=== PATIENT | male | born 1940 | race African-American/Black ===

== ENCOUNTER 2022-02-10 13:54 | Inpatient (IN) | payer MEDICARE, MEDICAID ==
[~2022-02-10] VITALS: Ht 182.9 cm; Wt 64.9 kg
[2022-02-10 17:35] LABS: BASOPHILS % 0.6 % (0.0-2.0); EOSINOPHILS % 2.1 % (0.0-5.0); HEMOGLOBIN. 13.6 g/dL (14.0-18.0); LYMPHOCYTES % 11.7 % (20.0-50.0); MEAN CORPUSCULAR HEMOGLOBIN 29.5 pg (28.0-32.0); MEAN CORPUSCULAR VOLUME 90.9 fL (80.0-94.0); MEAN PLATELET VOLUME 9.6 fl (7.4-10.4); MONOCYTES % 8.1 % (2.0-8.0); NEUTROPHILS % 77.5 % (40.0-76.0); PLATELET 193 x1000/uL (130-400); RED BLOOD CELL COUNT 4.62 mill/uL (4.7-6.1); RED CELL DISTRIBUTION WIDTH 15.8 % (11.6-14.6)
[2022-02-10 17:38] LABS: CHLORIDE 109 mEq/L (98-107)
[2022-02-10 19:52] LABS: CLARITY URINE TURBID (CLEAR); COLOR URINE YELLOW (YELLOW); KETONES URINE NEGATIVE (NEGATIVE); LEUKOCYTE ESTERASE URINE 3+ (NEGATIVE); NITRITE URINE POSITIVE (NEGATIVE); OCCULT BLOOD URINE 3+ (NEGATIVE); PROTEIN URINE 3+ (NEGATIVE); SPECIFIC GRAVITY URINE 1.015 (1.005-1.030)
[2022-02-10] MEDS ORDERED: HALOPERIDOL LACTATE 5MG/ML VIAL IM ONE (20:30)
[2022-02-10] MEDS ORDERED: CEFTRIAXONE 1 G PREMIX 50 ML IV ONE (20:45)
[2022-02-10 22:00] VITALS: BP 146/71
[2022-02-10] MEDS ORDERED: CLONIDINE 0.1MG TABLET PO PRN (22:00)
[2022-02-10] MEDS ORDERED: DOCUSATE SODIUM 100MG CAPSULE PO PRN (22:00)
[2022-02-10] MEDS ORDERED: ACETAMINOPHEN 325MG TABLET PO PRN ×2 (22:00)
[2022-02-10] MEDS ORDERED: ONDANSETRON HCL 4MG/2ML INJ IV PRN (22:00)
[2022-02-10] MEDS ORDERED: GUAIFENESIN 200MG/10ML SUGAR FREE UDC PO PRN (22:00)
[2022-02-10] MEDS ORDERED: NITROGLYCERIN 0.4MG TABLET SL SL PRN (22:00)
[2022-02-10] MEDS ORDERED: IPRATROPIUM/ALBUTEROL 0.5-3(2.5)MG/3ML NEB NEB PRN (22:00)
[2022-02-10] MEDS ORDERED: MAGNESIUM/ALUMINUM HYDROXIDE/SIMETHICONE 30ML UDC PO PRN (22:00)
[2022-02-10 22:20] LABS: ETHANOL BLOOD < 10 mg/dL
[2022-02-10 22:23] LABS: LDL CHOLESTEROL 58 mg/dL (5-100); TOTAL IRON BINDING CAPACITY 276 ug/dL (250-450)
[2022-02-10 22:24] LABS: HDL CHOLESTEROL 72 mg/dL (40-59)
[2022-02-10 22:25] LABS: T4 FREE 1.15 ng/dL (0.76-1.46)
[2022-02-10] MEDS ORDERED: LEVOFLOXACIN 500MG PREMIX 100 ML IV NR (22:30)
[2022-02-10 22:41] LABS: FOLIC ACID (FOLATE) SERUM 13.3 ng/mL (>5.38)
[2022-02-10] MEDS ORDERED: ENOXAPARIN 40MG/0.4ML SYR SUBCUT SCH (23:00)
[2022-02-11] VITALS (11 sets, daily range): BP systolic 135–174; BP diastolic 58–94
[2022-02-11] MEDS ORDERED: LEVOFLOXACIN 500MG PREMIX 100 ML IV NR (01:45)
[2022-02-11 01:54] LABS: CREATINE KINASE MB FRACTION 3.4 ng/mL (0.5-3.6)
[2022-02-11] MEDS: ZOLPIDEM TARTRATE 5MG TABLET PO PRN ×2 (01:55→23:56)
[2022-02-11 07:10] LABS: BASOPHILS % 0.8 % (0.0-2.0); EOSINOPHILS % 0.7 % (0.0-5.0); HEMATOCRIT. 40.9 % (42.0-52.0); HEMOGLOBIN. 13.5 g/dL (14.0-18.0); LYMPHOCYTES % 15.8 % (20.0-50.0); MEAN CORPUSCULAR HEMOGLOBIN 29.6 pg (28.0-32.0); MEAN PLATELET VOLUME 9.7 fl (7.4-10.4); MONOCYTES % 8.9 % (2.0-8.0); NEUTROPHILS % 73.8 % (40.0-76.0); PLATELET 219 x1000/uL (130-400); RED BLOOD CELL COUNT 4.55 mill/uL (4.7-6.1); RED CELL DISTRIBUTION WIDTH 15.5 % (11.6-14.6)
[2022-02-11 07:27] LABS: CREATINE KINASE MB FRACTION 3.2 ng/mL (0.5-3.6)
[2022-02-11 07:29] LABS: CHLORIDE 109 mEq/L (98-107); PHOSPHORUS 2.6 mg/dL (2.5-4.9)
[2022-02-11] MEDS ORDERED: CEFTRIAXONE 1 G PREMIX 50 ML IV SCH (09:00)
[2022-02-11] MEDS ORDERED: ASPIRIN 325MG EC TABLET PO SCH (09:00)
[2022-02-11] MEDS ORDERED: ENOXAPARIN 40MG/0.4ML SYR SUBCUT SCH (09:00)
[2022-02-11] MEDS ORDERED: MAGNESIUM 2 G PREMIX 50 ML IV SCH (12:00)
[2022-02-11] MEDS: FUROSEMIDE 40MG/4ML VIAL IVP SCH ×2 (12:15→21:56)
[2022-02-11] MEDS: SPIRONOLACTONE 25MG TABLET PO SCH ×2 (12:15→21:57)
[2022-02-11] MEDS: DUTASTERIDE 0.5MG CAPSULE PO SCH (12:15)
[2022-02-11] MEDS: TAMSULOSIN HCL 0.4MG SR CAPSULE PO SCH (12:16)
[2022-02-11] MEDS: FAMOTIDINE 20MG TABLET PO SCH ×2 (12:17→21:57)
[2022-02-11] MEDS ORDERED: LEVOFLOXACIN 500MG PREMIX 100 ML IV SCH (13:15)
[2022-02-11 14:44] LABS: *AMPHETAMINES SCREEN URINE NEGATIVE (NEGATIVE); *BARBITURATES SCREEN URINE NEGATIVE (NEGATIVE); *BENZODIAZEPINES SCREEN URINE NEGATIVE (NEGATIVE); *COCAINE SCREEN URINE NEGATIVE (NEGATIVE)
[2022-02-11 14:45] LABS: CANNABINOID URINE SCREEN NEGATIVE (NEGATIVE); METHADONE URINE SCREEN NEGATIVE (NEGATIVE); OPIATES URINE SCREEN NEGATIVE (NEGATIVE)
[2022-02-11 14:47] LABS: PHENCYCLIDINE URINE SCREEN NEGATIVE (NEGATIVE)
[2022-02-11] MEDS: CEFTRIAXONE 1,000 MG in DEXTROSE 5% WATER 50 ML IV SCH (22:00)
[2022-02-12] VITALS (10 sets, daily range): BP systolic 103–168; BP diastolic 40–108
[2022-02-12] MEDS: LEVOFLOXACIN 250MG PREMIX 50 ML IV SCH (00:05)
[2022-02-12 06:23] LABS: BASOPHILS % 0.4 % (0.0-2.0); EOSINOPHILS % 0.6 % (0.0-5.0); HEMATOCRIT. 39.6 % (42.0-52.0); HEMOGLOBIN. 13.1 g/dL (14.0-18.0); LYMPHOCYTES % 12.5 % (20.0-50.0); MEAN CORPUSCULAR HEMOGLOBIN 29.3 pg (28.0-32.0); MEAN CORPUSCULAR VOLUME 88.9 fL (80.0-94.0); MONOCYTES % 10.2 % (2.0-8.0); NEUTROPHILS % 76.3 % (40.0-76.0); PLATELET 208 x1000/uL (130-400); RED BLOOD CELL COUNT 4.46 mill/uL (4.7-6.1); RED CELL DISTRIBUTION WIDTH 15.3 % (11.6-14.6)
[2022-02-12 06:29] LABS: CHLORIDE 102 mEq/L (98-107)
[2022-02-12] MEDS ORDERED: MIDAZOLAM HCL 2 MG/2 ML VIAL ONE ×2 (08:29→09:30)
[2022-02-12] MEDS ORDERED: LIDOCAINE HCL 1% 20ML VIAL (Pyxis) INJ ONE (08:29)
[2022-02-12] MEDS ORDERED: FENTANYL CITRATE/PF 50MCG/ML 2ML VIAL ONE (08:29)
[2022-02-12] MEDS: SPIRONOLACTONE 25MG TABLET PO SCH ×2 (09:00→20:27)
[2022-02-12] MEDS ORDERED: LEVOFLOXACIN 500MG PREMIX 100 ML IV NR (09:15)
[2022-02-12] MEDS ORDERED: DIPHENHYDRAMINE 50MG/ML VIAL ONE (09:35)
[2022-02-12] MEDS ORDERED: MORPHINE SULFATE 2 MG/ML CPJ (NOT FOR IM USE) IV PRN (10:45)
[2022-02-12] MEDS ORDERED: HYDROCODONE/ACETAMINOPHEN 5/325MG TABLET PO PRN (10:45)
[2022-02-12] MEDS: FUROSEMIDE 40MG/4ML VIAL IVP SCH (13:22)
[2022-02-12] MEDS: DUTASTERIDE 0.5MG CAPSULE PO SCH (13:22)
[2022-02-12] MEDS: FAMOTIDINE 20MG TABLET PO SCH ×2 (13:24→20:27)
[2022-02-12] MEDS: TAMSULOSIN HCL 0.4MG SR CAPSULE PO SCH (13:24)
[2022-02-12] MEDS: HALOPERIDOL LACTATE 5MG/ML VIAL IM PRN (13:51)
[2022-02-12] MEDS: METOPROLOL TARTRATE 25MG TABLET PO SCH ×2 (15:26→20:27)
[2022-02-12] MEDS: SOTALOL HCL 80MG TABLET PO SCH (21:00)
[2022-02-12] MEDS: CEFTRIAXONE 1,000 MG in DEXTROSE 5% WATER 50 ML IV SCH (22:11)
[2022-02-13] VITALS (11 sets, daily range): BP systolic 109–169; BP diastolic 71–120
[2022-02-13] MEDS: HALOPERIDOL LACTATE 5MG/ML VIAL IM PRN (01:42)
[2022-02-13] MEDS: LEVOFLOXACIN 250MG PREMIX 50 ML IV SCH (01:42)
[2022-02-13 07:59] LABS: MEAN CORPUSCULAR HEMOGLOBIN 29.8 pg (28.0-32.0); MEAN CORPUSCULAR VOLUME 89.5 fL (80.0-94.0); MEAN PLATELET VOLUME 9.6 fl (7.4-10.4); PLATELET 195 x1000/uL (130-400); RED BLOOD CELL COUNT 4.69 mill/uL (4.7-6.1); RED CELL DISTRIBUTION WIDTH 15.2 % (11.6-14.6)
[2022-02-13] MEDS: FUROSEMIDE 40MG/4ML VIAL IVP SCH (08:26)
[2022-02-13] MEDS: SPIRONOLACTONE 25MG TABLET PO SCH ×2 (08:27→22:58)
[2022-02-13] MEDS: DUTASTERIDE 0.5MG CAPSULE PO SCH (08:27)
[2022-02-13] MEDS: TAMSULOSIN HCL 0.4MG SR CAPSULE PO SCH (08:27)
[2022-02-13] MEDS: METOPROLOL TARTRATE 25MG TABLET PO SCH ×2 (08:27→22:59)
[2022-02-13] MEDS: FAMOTIDINE 20MG TABLET PO SCH ×2 (08:27→22:57)
[2022-02-13] MEDS: SOTALOL HCL 80MG TABLET PO SCH ×2 (08:33→22:58)
[2022-02-13] MEDS ORDERED: METOPROLOL TARTRATE 5MG/5ML VIAL IV PRN (10:15)
[2022-02-13] MEDS ORDERED: ENOXAPARIN 40MG/0.4ML SYR SUBCUT SCH ×2 (10:45→21:00)
[2022-02-13] MEDS: ASPIRIN 81MG EC TABLET PO SCH (10:50)
[2022-02-13 11:48] LABS: PLATELET ESTIMATE NORMAL
[2022-02-13] MEDS: ZOLPIDEM TARTRATE 5MG TABLET PO PRN (22:57)
[2022-02-13] MEDS: CEFTRIAXONE 1,000 MG in DEXTROSE 5% WATER 50 ML IV SCH (22:59)
[2022-02-13] MEDS: ENOXAPARIN 40MG/0.4ML SYR SUBCUT SCH (22:59)
[2022-02-14] VITALS (12 sets, daily range): BP systolic 105–165; BP diastolic 49–116
[2022-02-14] MEDS: LEVOFLOXACIN 250MG PREMIX 50 ML IV SCH (01:22)
[2022-02-14] MEDS: ASPIRIN 81MG EC TABLET PO SCH (10:20)
[2022-02-14] MEDS: SOTALOL HCL 80MG TABLET PO SCH ×3 (10:20→21:49)
[2022-02-14] MEDS: FAMOTIDINE 20MG TABLET PO SCH ×2 (10:21→21:47)
[2022-02-14] MEDS: DUTASTERIDE 0.5MG CAPSULE PO SCH (10:21)
[2022-02-14] MEDS: SPIRONOLACTONE 25MG TABLET PO SCH ×3 (10:22→21:49)
[2022-02-14] MEDS: ENOXAPARIN 40MG/0.4ML SYR SUBCUT SCH (10:22)
[2022-02-14] MEDS: TAMSULOSIN HCL 0.4MG SR CAPSULE PO SCH (10:23)
[2022-02-14] MEDS: METOPROLOL TARTRATE 25MG TABLET PO SCH ×3 (10:24→21:49)
[2022-02-14] MEDS: FUROSEMIDE 40MG/4ML VIAL IVP SCH (10:47)
[2022-02-14] MEDS ORDERED: NALOXONE HCL 0.4MG/ML VIAL IV PRN (14:45)
[2022-02-14] MEDS: CEFTRIAXONE 1,000 MG in DEXTROSE 5% WATER 50 ML IV SCH (21:50)
[2022-02-15] VITALS (10 sets, daily range): BP systolic 124–151; BP diastolic 74–110
[2022-02-15 00:56] LABS: PROTHROMBIN TIME 10.8 sec (9.6-11.0)
[2022-02-15] MEDS: LEVOFLOXACIN 250MG PREMIX 50 ML IV SCH (01:28)
[2022-02-15] MEDS: SPIRONOLACTONE 25MG TABLET PO SCH (08:23)
[2022-02-15] MEDS: FAMOTIDINE 20MG TABLET PO SCH (08:23)
[2022-02-15] MEDS: SOTALOL HCL 80MG TABLET PO SCH (08:23)
[2022-02-15] MEDS: TAMSULOSIN HCL 0.4MG SR CAPSULE PO SCH (08:24)
[2022-02-15] MEDS: ASPIRIN 81MG EC TABLET PO SCH (08:31)
[2022-02-15] MEDS: METOPROLOL TARTRATE 25MG TABLET PO SCH (08:31)
[2022-02-15] MEDS: DUTASTERIDE 0.5MG CAPSULE PO SCH (08:31)
[2022-02-15] MEDS: FUROSEMIDE 40MG/4ML VIAL IVP SCH (09:49)
[2022-02-15] MEDS ORDERED: MEGESTROL ACETATE 400 MG/10 ML UDC PO SCH (13:00)
[2022-02-15] MEDS: APIXABAN 5 MG TABLET PO SCH ×2 (13:58→17:00)
[2022-02-15] MEDS ORDERED: CEFAZOLIN 500 MG in DEXTROSE 5% WATER 50 ML IV SCH (14:00)
[2022-02-15] MEDS ORDERED: MIRTAZAPINE 15MG TABLET PO SCH (21:00)
== END 2022-02-15 17:20 | DRG 242 ==
LOC: ER 13:54 → EDBEDREQ 19:04 → EDBEDREQTM 20:34 → EDBEDREQ 20:34 → EDBEDREQSVC 20:34 → 3WST 20:39 → EDBEDREQTM 20:45 → EDBEDREQ 20:45 → ENRESERV 21:07 → SUPCPDRO 21:37 → 3WST 02-11 00:40
PROVIDERS: ADMIT Internal Medicine; ATTEND Internal Medicine
PROC: 0JH606Z Insertion of Pacemaker, Dual Chamber into Chest Subcutaneous Tissue and Fascia, Open Approach (ICD-10-PCS; principal; 2022-02-12)
PROC: 02HK3JZ Insertion of Pacemaker Lead into Right Ventricle, Percutaneous Approach (ICD-10-PCS; 2022-02-12)
PROC: 02H63JZ Insertion of Pacemaker Lead into Right Atrium, Percutaneous Approach (ICD-10-PCS; 2022-02-12)
PROC: B2141ZZ Fluoroscopy of Right Heart using Low Osmolar Contrast (ICD-10-PCS; 2022-02-12)
DX: I44.2 Atrioventricular block, complete (principal); A41.9 Sepsis, unspecified organism; G92.8 Other toxic encephalopathy; N17.0 Acute kidney failure with tubular necrosis; I50.33 Acute on chronic diastolic (congestive) heart failure; E44.1 Mild protein-calorie malnutrition; Z68.1 Body mass index [BMI] 19.9 or less, adult; N39.0 Urinary tract infection, site not specified; F03.90 Unspecified dementia, unspecified severity, without behavioral disturbance, psychotic disturbance, mood disturbance, and anxiety; I11.0 Hypertensive heart disease with heart failure; I25.10 Atherosclerotic heart disease of native coronary artery without angina pectoris; I48.0 Paroxysmal atrial fibrillation; I73.9 Peripheral vascular disease, unspecified; I34.0 Nonrheumatic mitral (valve) insufficiency; R59.0 Localized enlarged lymph nodes; Z20.822 Contact with and (suspected) exposure to COVID-19; N43.3 Hydrocele, unspecified; D64.9 Anemia, unspecified; Z87.891 Personal history of nicotine dependence; Z79.01 Long term (current) use of anticoagulants
CPT/HCPCS: 33208; 36415; 71045; 74176; 80048; 80053; 80061; 80305; 80320; 81003; 82550; 82553; 82607; 82746; 82962; 83036; 83540; 83550; 83735; 83880; 84100; 84153; 84439; 84443; 84484; 85025; 87077; 87186; 87426; 93005; 93306; 93970; 97162; 97166; 97530; 99291; A4565; C1785; C1898; J0690; J0696; J1200; J1630; J1650; J1940; J1956; J2250; J2270; J3010; J3475; J3490; J7060; A4315; G0103; G0480